=== PATIENT | male | born 1975 | race Caucasian/White ===

== ENCOUNTER → 2024-10-11 09:05 | Outpatient (BNVA) | payer OTHER, SELFPAY | PROVIDERS: PCP Nurse Practitioner; Referring Provider Nurse Practitioner; Visit Provider Nurse Practitioner | DX: E34.9 Endocrine disorder, unspecified (principal) | CPT/HCPCS: 84402; 84403 ==

== ENCOUNTER → 2025-02-26 09:52 | Outpatient (BNVA) | payer OTHER, SELFPAY | PROVIDERS: PCP Nurse Practitioner; Referring Provider Nurse Practitioner; Visit Provider Nurse Practitioner | DX: E34.9 Endocrine disorder, unspecified (principal) | CPT/HCPCS: 82672; 84402; 84403 ==